=== PATIENT | female | born 1985 | race Caucasian/White ===

== ENCOUNTER 2016-12-18 16:19 | Emergency (ER) | payer SELFPAY ==
--- NOTE | 2016-12-18 16:29 | ER Document Report ---
ED Medical Screen (RME) - General Stated Complaint: URINARY PAIN Time seen by provider: 16:25 Mode of Arrival: Ambulatory Information source: Patient Notes: 31-year-old female complaining of fishy vaginal odor and burning and urinary frequency and dysuria. History of abnormal Pap smear 3 years ago and has not had a Pap smear since. No pelvic cramping but there is some dyspareunia. No history of STD. TRAVEL OUTSIDE OF THE [place] IN LAST 30 DAYS: No - Related Data Allergies/Adverse Reactions: No Known Allergies Allergy (Verified 08/31/14 00:47) Past Medical History Malignancy Medical History: Reports: Hx Cervical Cancer - dysplasia on colposcopy Psychiatric Medical History: Reports: Hx Bipolar Disorder Past Surgical History: Reports: Hx Gynecologic Surgery - cervical cancer removal , Hx Tubal Ligation - Immunizations Immunizations up to date: Yes Hx Diphtheria, Pertussis, Tetanus Vaccination: Yes - 2012 Physical Exam - Vital signs Vitals: Temp Pulse Resp BP Pulse Ox 97.9 F 92 16 126/76 H 97 12/18/16 16:23 12/18/16 16:23 12/18/16 16:23 12/18/16 16:23 12/18/16 16:23 Course - Vital Signs Vital signs: Temp Pulse Resp BP Pulse Ox 97.9 F 92 16 126/76 H 97 12/18/16 16:23 12/18/16 16:23 12/18/16 16:23 12/18/16 16:23 12/18/16 16:23
--- NOTE | 2016-12-18 17:09 | ER Document Report ---
ED GI/ - General Chief Complaint: Vaginal Discharge Stated Complaint: URINARY PAIN Mode of Arrival: Ambulatory Notes: Marlen alvarado is a 31-year-old female who presents emergency Department complaining of vaginal discharge for the past 4 weeks as well as pain during intercourse and new onset pyuria at this morning. Patient states that she is having unprotected sex with the same partner. She states that she has a history of getting urinary tract infections and bacterial vaginosis very easily. Otherwise she denies any nausea, vomiting, diarrhea or constipation. Last bowel movement was this morning which was normal. States that she had a tubal ligation and since then has had irregular menstrual periods Past medical history significant for history of cervical cancer she had a cervical cone biopsy 3 years ago and has not had any follow-up since. Patient does not have any medical insurance and is not willing to had a pocket for co-pay was so therefore she does not follow up with any providers. TRAVEL OUTSIDE OF THE [place] IN LAST 30 DAYS: No - Related Data Allergies/Adverse Reactions: No Known Allergies Allergy (Verified 08/31/14 00:47) Past Medical History - General Information source: Patient - Social History Smoking Status: Current Some Day Smoker Family History: Hypertension, Malignancy Renal/ Medical History: Denies: Hx Peritoneal Dialysis Malignancy Medical History: Reports: Hx Cervical Cancer - dysplasia on colposcopy Psychiatric Medical History: Reports: Hx Bipolar Disorder Past Surgical History: Reports: Hx Gynecologic Surgery - cervical cancer removal , Hx Tubal Ligation - Immunizations Immunizations up to date: Yes Hx Diphtheria, Pertussis, Tetanus Vaccination: Yes - 2012 Review of Systems - Review of Systems Constitutional: No symptoms reported EENT: No symptoms reported Cardiovascular: No symptoms reported Respiratory: No symptoms reported Gastrointestinal: No symptoms reported Genitourinary: No symptoms reported Female Genitourinary: See HPI Musculoskeletal: No symptoms reported Skin: No symptoms reported Hematologic/Lymphatic: No symptoms reported Neurological/Psychological: No symptoms reported Physical Exam - Vital signs Vitals: Temp Pulse Resp BP Pulse Ox 97.9 F 92 16 126/76 H 97 12/18/16 16:23 12/18/16 16:23 12/18/16 16:23 12/18/16 16:23 12/18/16 16:23 - Notes Notes: PHYSICAL EXAM GENERAL: Alert, interacts well. HEAD: Normocephalic, atraumatic. EYES: Pupils equal, round, and reactive to light. Extraocular movements intact. ENT: Oral mucosa moist, tongue midline. NECK: Full range of motion. Supple. Trachea midline. LUNGS: Clear to auscultation bilaterally, no wheezes, rales, or rhonchi. No respiratory distress. HEART: Regular rate and rhythm. No murmurs, gallops, or rubs. ABDOMEN: Soft, nondistended, nontender. No guarding, rebound, or rigidity.. Bowel sounds present in all 4 quadrants. FEMALE : Normal external exam. No evidence of lesions, lacerations, bruising or vesicles. Speculum exam normal cervix closed. there is evidence of vaginal discharge with odor. No evidence of lesions. No vaginal bleeding. Bimanual exam normal with positive cervical motion tenderness. No adnexal mass or adnexal tenderness. EXTREMITIES: Moves all 4 extremities spontaneously. No edema, radial and dorsalis pedis pulses 2/4 bilaterally. No cyanosis. NEUROLOGICAL: Alert and oriented x3. Normal speech. PSYCH: Normal affect, normal mood. SKIN: Warm, dry, normal turgor. No rashes or lesions noted. Course - Re-evaluation Re-evalutation: 12/18/16 18:58 Patient is a 31-year-old female who has recurrent history of UTIs and bacterial vaginitis. Pelvic exam and labs reveal UTI and bacterial vaginosis without any evidence of Trichomonas, Chlamydia or gonorrhea. Patient will be discharged home on by mouth Flagyl and hematocrit follow-up with primary care as needed. Will give patient information [facility]. - Vital Signs Vital signs: Temp Pulse Resp BP Pulse Ox 97.9 F 92 16 126/76 H 97 12/18/16 16:24 12/18/16 16:24 12/18/16 16:24 12/18/16 16:24 12/18/16 16:24 - Laboratory Laboratory results interpreted by me: 12/18/16 16:30 Ur Leukocyte Esterase MODERATE H Discharge - Discharge Clinical Impression: Bacterial vaginitis UTI (urinary tract infection) Qualifiers: Urinary tract infection type: acute cystitis Hematuria presence: without hematuria Qualified Code(s): N30.00 - Acute cystitis without hematuria Condition: Good Disposition: HOME, SELF-CARE Additional Instructions: VAGINITIS: Your exam shows that you have vaginitis, a vaginal infection. The infection can be caused by a many different organisms, including trichomonas or Gardnerella. The usual symptoms are vaginal irritation and discharge. The treatment is usually antibiotics such as Flagyl. Laboratory tests can determine which germ is responsible. Use the medication as prescribed. Because this infection can be transmitted sexually, your sexual partner may need to be checked and treated also. If your physician has not discussed this with you, please check before resuming sexual relations. If a culture shows gonorrhea or chlamydia, the infection must be reported to the health department. Call the doctor if you develop pelvic pain, fever, or problems with urination, or if you don't improve as expected. VAGINOSIS, BACTERIAL: Your exam shows you have bacterial vaginosis. This condition is due to an overgrowth of bacteria in the vagina. Symptoms may include vaginal itching or pain, a smelly discharge, and sometimes burning with urination. Normally this is not transmitted by sexual contact. Vaginosis can be treated with oral or topical antibiotics. Metronidazole ( Flagyl) pills are usually effective. Topical vaginal creams include Cleocin and Metro-Gel. You should avoid sexual contact until your symptoms are all better. Call the doctor if you develop pelvic pain, fever, or problems with urination, or if you don't improve as expected. ANTIBIOTIC THERAPY: You have been given an antibiotic prescription. It's important that you take all the medication, unless instructed otherwise by your physician. Failure to complete the entire course can result in relapse of your condition. Common side effects of antibiotics include nausea, intestinal cramping, or diarrhea. Women may develop vaginal yeast infections, and babies can get yeast (thrush) in the mouth following the use of antibiotics. Contact your physician if you develop significant side effects from this medication. Allergy to this antibiotic can result in hives, wheezing, faintness, or itching. If symptoms of allergy occur, stop the medication and call the doctor. METRONIDAZOLE: Metronidazole (Flagyl) has been prescribed. This medication is used to kill a type of bacteria called anaerobes, and protozoan parasites such as trichomonas and Giardia. Flagyl often causes a metallic taste in the mouth and mild nausea. Do not use alcohol in any form with Flagyl (including alcohol in medication elixirs). Flagyl interacts with alcohol to cause flushing, palpitations, headache, stomach cramps, and vomiting. Do not use Flagyl if you are taking Antabuse (disulfiram). Call the doctor at once if you develop rash, shortness of breath, itching, or lightheadedness. URINARY TRACT INFECTION: Your evaluation indicates that you have a urinary tract infection. This is due to germs growing in the bladder. This is a common problem. This infection usually responds quickly to antibiotics. Your antibiotic should be taken exactly as prescribed. Drink plenty of fluids -- three to four quarts a day. Occasionally, a bladder anesthetic will be prescribed to help stop the feeling of urgency until the antibiotic has a chance to clear the infection. This may cause your urine to be dark orange. Certain urine infections require a culture. If the doctor obtained a culture, the results will be back in two days. You should call to see if a change in treatment is needed. A repeat urinalysis after you finish treatment is often recommended. The physician will let you know if further testing is required. Call the doctor if you develop fever, chills, flank pain, inability to urinate, or blood in the urine. ANTIBIOTIC THERAPY: You have been given an antibiotic prescription. It's important that you take all the medication, unless instructed otherwise by your physician. Failure to complete the entire course can result in relapse of your condition. Common side effects of antibiotics include nausea, intestinal cramping, or diarrhea. Women may develop vaginal yeast infections, and babies can get yeast (thrush) in the mouth following the use of antibiotics. Contact your physician if you develop significant side effects from this medication. Allergy to this antibiotic can result in hives, wheezing, faintness, or itching. If symptoms of allergy occur, stop the medication and call the doctor. CIPROFLOXACIN: You have been given an antibacterial agent, ciprofloxacin (Cipro). This medicine is not related to the penicillins, sulfas, cephalosporins, or tetracyclines. It is often given to patients who are allergic to these drugs. It has been chosen for you either because other drugs are not appropriate, or because of the nature of your problem. Cipro should not be taken with antacids, as these can decrease its effectiveness. It can be taken without regard to meals. CIPRO SHOULD NOT BE TAKEN BY CHILDREN, NURSING WOMEN, OR WOMEN. Although Cipro is usually well-tolerated, common side effects can include nausea and diarrhea. Contact your doctor if you experience any unusual symptoms while on this medication, such as joint pain or swelling, shortness of breath, wheezing, faintness, or hives. FOLLOW-UP CARE: If you have been referred to a physician for follow-up care, call the physician s office for an appointment as you were instructed or within the next two days. If you experience worsening or a significant change in your symptoms, notify the physician immediately or return to the Emergency Department at any time for re-evaluation. Prescriptions: Ciprofloxacin HCl [Cipro 500 mg Tablet] 500 mg PO BID 3 Days Metronidazole [Flagyl 500 mg Tablet] 500 mg PO BID 14 Days
[2016-12-18 17:11] LABS: APPEARANCE,URINE SLIGHTLY-CLOUDY; BILIRUBIN,URINE NEGATIVE (NEGATIVE); GLUCOSE, URINE NEGATIVE (NEGATIVE); KETONES,URINE NEGATIVE (NEGATIVE); LEUKOCYTE ESTERASE,URINE MODERATE (NEGATIVE); NITRITE,URINE NEGATIVE (NEGATIVE); PROTEIN,URINE NEGATIVE (NEGATIVE); URINE SPECIFIC GRAVITY 1.023; UROBILINOGEN,URINE NEGATIVE mg/dL (<2.0)
[2016-12-18 18:29] LABS: CHLAM PCR NOT DETECTED (NOT DETECT)
[2016-12-18] MEDS ORDERED: METRONIDAZOLE 500 MG TABLET PO ONE (19:08)
[2016-12-18] MEDS ORDERED: CIPROFLOXACIN HCL 500 MG TABLET PO ONE (19:08)
[2016-12-18 19:31] VITALS: BP 126/80
== END 2016-12-18 19:32 | disposition home or self-care (01) ==
LOC: ER 16:19
DX: N30.00 Acute cystitis without hematuria (principal); N76.0 Acute vaginitis; B96.89 Other specified bacterial agents as the cause of diseases classified elsewhere; Z85.41 Personal history of malignant neoplasm of cervix uteri
CPT/HCPCS: 81001; 81025; 87086; 87088; 87186; 87210; 87491; 87591; 99283

== ENCOUNTER 2017-01-19 06:03 | Emergency (ER) | payer OTHER ==
[2017-01-19] MEDS ORDERED: NORMAL SALINE 1000 ML 1,000 ML IV ONE (07:41)
[2017-01-19] MEDS ORDERED: KETOROLAC TROMETHAMINE INJ/PF 30 MG/1 ML SDV IV ONE (07:41)
--- NOTE | 2017-01-19 07:42 | ER Document Report ---
HPI - HPI Patient complains to provider of: sore throat Onset: Yesterday Onset/Duration: Gradual Quality of pain: Achy Pain Level: 5 Context: Patient complains of sore throat symptoms that started yesterday. Patient complains of chills and body aches. Patient states she's had difficulty with oral fluids due to her throat discomfort. Patient denies any fever or cough. She can swallow fluids but is just painful to do so. Associated Symptoms: Body/muscle aches, Chills, Rhinnorhea, Sore throat. denies : Nonproductive cough, Productive cough, Fever Exacerbated by: Denies Relieved by: Denies Similar symptoms previously: Yes Recently seen / treated by doctor: No - ROS ROS below otherwise negative: Yes Systems Reviewed and Negative: Yes All other systems reviewed and negative - CONSTITUTIONAL Constitutional: REPORTS: Chills. DENIES: Fever - EENT EENT: REPORTS: Sore Throat, Congestion - CARDIOVASCULAR Cardiovascular: DENIES: Chest pain - RESPIRATORY Respiratory: DENIES: Trouble Breathing, Coughing - GASTROINTESTINAL Gastrointestinal: DENIES: Nausea - REPRODUCTIVE Reproductive: DENIES: : - MUSCULOSKELETAL Musculoskeletal: REPORTS: Extremity pain - Generalized body aches - DERM Skin Color: Normal Skin Problems: None Past Medical History - General Information source: Patient - Social History Smoking Status: Current Some Day Smoker Frequency of alcohol use: None Drug Abuse: None Occupation: retail Family History: Hypertension, Malignancy Patient has suicidal ideation: No Patient has homicidal ideation: No Renal/ Medical History: Denies: Hx Peritoneal Dialysis Malignancy Medical History: Reports: Hx Cervical Cancer - dysplasia on colposcopy Psychiatric Medical History: Reports: Hx Bipolar Disorder Past Surgical History: Reports: Hx Gynecologic Surgery - cervical cancer removal , Hx Tubal Ligation - Immunizations Immunizations up to date: Yes Hx Diphtheria, Pertussis, Tetanus Vaccination: Yes - 2013 Vertical Provider Document - CONSTITUTIONAL Agree With Documented VS: Yes Exam Limitations: No Limitations General Appearance: WD/WN, No Apparent Distress - INFECTION CONTROL TRAVEL OUTSIDE OF THE [place] IN LAST 30 DAYS: No - HEENT HEENT: Atraumatic, Normocephalic, Pharyngeal Tenderness, Pharyngeal Erythema. negative: Tympanic Membrane Red, Tympanic Membrane Bulging - NECK Neck: Lymphadenopathy-Left, Lymphadenopathy-Right - RESPIRATORY Respiratory: Breath Sounds Normal, No Respiratory Distress, Chest Non-Tender O2 Sat by Pulse Oximetry: 98 - CARDIOVASCULAR Cardiovascular: Regular Rhythm, No Murmur, Tachycardia - BACK Back: Normal Inspection. negative: CVA Tenderness-Right, CVA Tenderness-Left - MUSCULOSKELETAL/EXTREMETIES Musculoskeletal/Extremeties: HOWARD BALLESTEROS - NEURO Level of Consciousness: Awake, Alert, Appropriate Motor/Sensory: No Motor Deficit - DERM Integumentary: Warm, Dry, No Rash Course - Re-evaluation Re-evalutation: 01/19/17 Patient encouraged to increase oral fluids to stay well-hydrated. Patient's tachycardia improved as compared to her initial presentation to the ER. - Vital Signs Vital signs: Temp Pulse Resp BP Pulse Ox 98.9 F 123 H 20 131/76 H 98 01/19/17 06:20 01/19/17 06:20 01/19/17 06:20 01/19/17 06:20 01/19/17 06:20 - Laboratory Laboratory results interpreted by me: 01/19/17 09:16 Labs- Entire Visit 01/19/17 01/19/17 08:00 08:15 Monotest NEGATIVE Group A Strep Rapid POSITIVE Discharge - Discharge Clinical Impression: Sore throat, Strep pharyngitis Condition: Stable Disposition: HOME, SELF-CARE Instructions: Oral Narcotic Medication ([facility]), Strep Throat ([facility]), Penicillin V K ([facility]) Additional Instructions: Return immediately for any new or worsening symptoms Followup with your primary care provider, call tomorrow to make a followup appointment Prescriptions: Oxycodone HCl/Acetaminophen [Percocet 5-325 mg Tablet] 1 tab PO ASDIR PRN #15 tablet PRN Reason: Penicillin V Potassium [Penicillin Vk 500 mg Tablet] 500 mg PO BID #20 tablet Forms: Return to Work Referrals: [facility] [Primary Care Provider] - Follow up tomorrow
[2017-01-19] MEDS ORDERED: PENICILLIN V POTASSIUM 500 MG TABLET PO ONE (09:16)
[2017-01-19 09:55] VITALS: BP 122/68
== END 2017-01-19 09:33 | disposition home or self-care (01) ==
LOC: ER 06:03
DX: J02.0 Streptococcal pharyngitis (principal); J02.9 Acute pharyngitis, unspecified; R52 Pain, unspecified; F17.200 Nicotine dependence, unspecified, uncomplicated
CPT/HCPCS: 99283; 96361; 96374; 36415; 87880; 86308; J1885; J7030

== ENCOUNTER 2017-04-08 22:58 | Emergency (ER) | payer OTHER ==
[2017-04-09 01:21] LABS: APPEARANCE,URINE CLOUDY; BILIRUBIN,URINE NEGATIVE (NEGATIVE); GLUCOSE, URINE NEGATIVE (NEGATIVE); KETONES,URINE TRACE mg/dL (NEGATIVE); LEUKOCYTE ESTERASE,URINE LARGE (NEGATIVE); NITRITE,URINE NEGATIVE (NEGATIVE); PROTEIN,URINE 30 mg/dL (NEGATIVE); URINE SPECIFIC GRAVITY 1.029; UROBILINOGEN,URINE NEGATIVE mg/dL (<2.0)
[2017-04-09] MEDS ORDERED: CEFTRIAXONE INJ 250 MG VIAL IM ONE (01:34)
[2017-04-09] MEDS ORDERED: AZITHROMYCIN 1 GM SUSP PACKET PO ONE (01:34)
[2017-04-09] MEDS ORDERED: LIDOCAINE 1% INJ-PF (10 MG/ML) 30 ML SDV INJ ONE (01:34)
--- NOTE | 2017-04-09 01:36 | ER Document Report ---
ED GI/ - General Chief Complaint: Vaginal Discharge Stated Complaint: VAGINAL DISCHARGE Time Seen by Provider: 04/09/17 00:08 Notes: 32-year-old female presents emergency department complaining whitish/yellow vaginal discharge with close for the past 4 days. Patient states she recently broken up and gotten back together with her boyfriend last week. She states she has had sexual intercourse and from vaginal itching and discharge starting on Tuesday. Patient is concerned that she has an STD History significant for recurrent bacterial vaginosis, urinary tract infection, yeast infections. Patient has a history of a tubal ligation TRAVEL OUTSIDE OF THE [place] IN LAST 30 DAYS: No - Related Data Allergies/Adverse Reactions: No Known Allergies Allergy (Verified 08/31/14 00:47) Past Medical History - Social History Smoking Status: Current Every Day Smoker Chew tobacco use (# tins/day): No Frequency of alcohol use: None Drug Abuse: None Family History: Hypertension, Malignancy Patient has suicidal ideation: No Patient has homicidal ideation: No Renal/ Medical History: Denies: Hx Peritoneal Dialysis Malignancy Medical History: Reports: Hx Cervical Cancer - dysplasia on colposcopy Psychiatric Medical History: Reports: Hx Bipolar Disorder Past Surgical History: Reports: Hx Gynecologic Surgery - cervical cancer removal , Hx Tubal Ligation - Immunizations Immunizations up to date: Yes Hx Diphtheria, Pertussis, Tetanus Vaccination: Yes - 2012 Review of Systems - Review of Systems Genitourinary: Burning, Dysuria, Discharge, Frequency, Urgency. denies: Flank pain Female Genitourinary: See HPI Physical Exam - Vital signs Vitals: Temp Pulse Resp BP Pulse Ox 98.2 F 87 16 131/62 H 98 04/08/17 23:48 04/08/17 23:48 04/08/17 23:48 04/08/17 23:48 04/08/17 23:48 - Notes Notes: PHYSICAL EXAM GENERAL: Alert, interacts well. LUNGS: Clear to auscultation bilaterally, no wheezes, rales, or rhonchi. No respiratory distress. HEART: Regular rate and rhythm. No murmurs, gallops, or rubs. ABDOMEN: Soft, nondistended, nontender. No guarding, rebound, or rigidity.. Bowel sounds present in all 4 quadrants. FEMALE : Normal external exam. No evidence of lesions, lacerations, bruising or vesicles. Speculum exam normal cervix closed. evidence of vaginal discharge with odor. No evidence of lesions. No vaginal bleeding. Bimanual exam normal no cervical motion tenderness. No adnexal mass or adnexal tenderness. EXTREMITIES: Moves all 4 extremities spontaneously. No edema, radial and dorsalis pedis pulses 2/4 bilaterally. No cyanosis. NEUROLOGICAL: Alert and oriented x4. Normal speech. PSYCH: Normal affect, normal mood. SKIN: Warm, dry, normal turgor. No rashes or lesions noted. Course - Re-evaluation Re-evalutation: 04/09/17 06:43 Patient is a 32-year-old female who is hemodynamic stable, no acute distress afebrile. Patient requesting treatment for complaining gonorrhea since she is sure that her patient positive for it. She is discharged prior to return of her results which did come back negative. Given the patient does have recurrent yeast infections it is possible that she had one but had treated at home when she used Monistat the other day. Patient does have evidence of urinary tract infection on urinalysis. Patient sent home on p.o. Cipro instruction to follow-up with primary care - Vital Signs Vital signs: Temp Pulse Resp BP Pulse Ox 98.2 F 93 20 120/76 98 04/08/17 23:48 04/09/17 02:55 04/09/17 02:55 04/09/17 02:55 04/09/17 02:55 - Laboratory Laboratory results interpreted by me: 04/09/17 00:30 Urine Protein 30 H Urine Ketones TRACE H Ur Leukocyte Esterase LARGE H Discharge - Discharge Clinical Impression: UTI (urinary tract infection), Vaginal discharge Condition: Good Disposition: HOME, SELF-CARE Instructions: Urinary Tract Infection ([facility]) Prescriptions: Ciprofloxacin HCl [Cipro 250 mg Tablet] 1 tab PO BID #6 tab Forms: Elevated Blood Pressure Referrals: AMERICO ZAMAN MD [NO LOCAL MD] - Follow up as needed
[2017-04-09 02:30] LABS: CHLAM PCR NOT DETECTED (NOT DETECT)
[2017-04-09 02:56] VITALS: BP 120/76
== END 2017-04-09 02:55 | disposition home or self-care (01) ==
LOC: ER 22:58
DX: N39.0 Urinary tract infection, site not specified (principal); N89.8 Other specified noninflammatory disorders of vagina; F17.200 Nicotine dependence, unspecified, uncomplicated
CPT/HCPCS: 99283; 96372; 87210; 81025; 81001; 87491; 87591; J3490; Q0144; J0696

== ENCOUNTER 2017-08-10 10:05 | Emergency (ER) | payer OTHER ==
--- NOTE | 2017-08-10 11:05 | ER Document Report ---
ED Oral Problem - General Chief Complaint: Toothache Stated Complaint: TOOTHACHE Time Seen by Provider: 08/10/17 10:53 Notes: 32 yo female c/o pain to left upper and lower jaw for several weeks from wisdom teeth. pt has had no fever. no swelling. "feels like her teeth are moving". TRAVEL OUTSIDE OF THE [place] IN LAST 30 DAYS: No - HPI Patient complains to provider of: Toothache Onset: Last week Onset: Gradual Quality of pain: Achy Context: denies: Fractured tooth, Recent antibiotic use, Recent dental extractions Associated symptoms: Earache, Headache, Toothache Relieved by: Nothing - no relief with Tylenol, Motrin, BC Similar symptoms previously: Yes Recently seen / treated by doctor/dentist: No - Related Data Allergies/Adverse Reactions: No Known Allergies Allergy (Verified 08/10/17 10:10) Past Medical History - General Information source: Patient - Social History Smoking Status: Current Some Day Smoker Chew tobacco use (# tins/day): No Frequency of alcohol use: None Drug Abuse: None Family History: Hypertension, Malignancy Renal/ Medical History: Denies: Hx Peritoneal Dialysis Malignancy Medical History: Reports: Hx Cervical Cancer - dysplasia on colposcopy Psychiatric Medical History: Reports: Hx Bipolar Disorder Past Surgical History: Reports: Hx Gynecologic Surgery - cervical cancer removal , Hx Tubal Ligation - Immunizations Immunizations up to date: Yes Hx Diphtheria, Pertussis, Tetanus Vaccination: Yes - 2012 Review of Systems - Review of Systems Constitutional: No symptoms reported EENT: See HPI Cardiovascular: No symptoms reported Respiratory: No symptoms reported Gastrointestinal: No symptoms reported Genitourinary: No symptoms reported Female Genitourinary: No symptoms reported Musculoskeletal: No symptoms reported Skin: No symptoms reported Hematologic/Lymphatic: No symptoms reported Neurological/Psychological: No symptoms reported Physical Exam - Vital signs Vitals: Temp Pulse Resp BP Pulse Ox 98.2 F 81 16 137/94 H 99 08/10/17 10:10 08/10/17 10:10 08/10/17 10:10 08/10/17 10:10 08/10/17 10:10 Interpretation: Normal - General General appearance: Appears well, Alert - HEENT Head: Normocephalic, Atraumatic Eyes: Normal Conjunctiva: Normal Pupils: PERRL Tympanic membrane: Normal Mouth/Lips: No: Caries, Dental fracture, Laceration, Lesions Mucous membranes: Moist Teeth diagram: 1 - pain 2 - pain Pharynx: Normal Neck: Normal, Supple - Respiratory Respiratory status: No respiratory distress Chest status: Nontender Breath sounds: Normal Chest palpation: Normal - Cardiovascular Rhythm: Regular Heart sounds: Normal auscultation Murmur: No - Abdominal Inspection: Normal Distension: No distension Bowel sounds: Normal Tenderness: Nontender Organomegaly: No organomegaly - Back Back: Normal, Nontender - Extremities General upper extremity: Normal inspection, Nontender, Normal color, Normal ROM , Normal temperature General lower extremity: Normal inspection, Nontender, Normal color, Normal ROM , Normal temperature, Normal weight bearing. No: Chris's sign - Neurological Neuro grossly intact: Yes Cognition: Normal Orientation: AAOx4 [place] Coma Scale Eye Opening: Spontaneous [place] Coma Scale Verbal: Oriented [place] Coma Scale Motor: Obeys Commands [place] Coma Scale Total: 15 Speech: Normal Motor strength normal: LUE, RUE, LLE, RLE Sensory: Normal - Psychological Associated symptoms: Normal affect, Normal mood - Skin Skin Temperature: Warm Skin Moisture: Dry Skin Color: Normal Course - Re-evaluation Re-evalutation: 08/10/17 11:04 no signs of infection or abscess, no s/s bebe's or peritonsillar abscess. pt requesting stronger medication because Motrin has not been working. will write short Rx for Ultram. pt is stable for discharge 08/10/17 11:07 pt is also requesting a serum test today. she reports she took 2 home tests one came back positive, one came back negative. pt denies any vaginal bleeding, abdominal pain or any other related concerns today, "just want to know if Im ". Pt has had her tube tied, . request declined today. test is not clincally indicated for today's visit. - Vital Signs Vital signs: Temp Pulse Resp BP Pulse Ox 98.2 F 81 16 137/94 H 99 08/10/17 10:10 08/10/17 10:10 08/10/17 10:10 08/10/17 10:10 08/10/17 10:10 Discharge - Discharge Clinical Impression: Pain, dental Condition: Stable Disposition: HOME, SELF-CARE Instructions: Toothache ([facility]), Ultram ([facility]), Ibuprofen (General) ([facility]) Additional Instructions: Please take medications as prescribed Follow up with Dental for further evaluation and treatment Prescriptions: Ibuprofen [Motrin 800 Mg Tablet] 800 mg PO Q6H #20 tablet Tramadol HCl [Ultram] 50 mg PO Q6H PRN #20 tablet PRN Reason:
[2017-08-10 11:37] VITALS: BP 135/84
== END 2017-08-10 11:35 | disposition home or self-care (01) ==
LOC: ER 10:05
DX: K08.89 Other specified disorders of teeth and supporting structures (principal); F17.200 Nicotine dependence, unspecified, uncomplicated; Z98.51 Tubal ligation status
CPT/HCPCS: 99282

== ENCOUNTER 2017-12-12 09:31 | Emergency (ER) | payer OTHER ==
--- NOTE | 2017-12-12 10:29 | ER Document Report ---
HPI - HPI Patient complains to provider of: vaginal discharge Onset: Other - 1 week Pain Level: 1 Context: 32 yo female with malodorous yellow/green vaginal discharge rof 1 week with dyspareunia. Concerned about STD. No fever. Associated Symptoms: None Exacerbated by: Denies Relieved by: Denies Similar symptoms previously: No Recently seen / treated by doctor: No - ROS ROS below otherwise negative: Yes Systems Reviewed and Negative: Yes All other systems reviewed and negative - REPRODUCTIVE LMP: 11/18/17 Reproductive: REPORTS: Abnormal bleeding / discharge. DENIES: : Past Medical History - General Information source: Patient - Social History Smoking Status: Never Smoker Frequency of alcohol use: None Drug Abuse: None Family History: Hypertension, Malignancy Patient has suicidal ideation: No Patient has homicidal ideation: No - Medical History Notes: ghonorrhea years ago, Trich, abnl pap-culpscopy Renal/ Medical History: Denies: Hx Peritoneal Dialysis Malignancy Medical History: Reports: Hx Cervical Cancer - dysplasia on colposcopy Psychiatric Medical History: Reports: Hx Bipolar Disorder Past Surgical History: Reports: Hx Gynecologic Surgery - cervical cancer removal , Hx Tubal Ligation - Immunizations Immunizations up to date: Yes Hx Diphtheria, Pertussis, Tetanus Vaccination: Yes - 2012 Vertical Provider Document - CONSTITUTIONAL Agree With Documented VS: Yes Exam Limitations: No Limitations General Appearance: No Apparent Distress - INFECTION CONTROL TRAVEL OUTSIDE OF THE [place] IN LAST 30 DAYS: No - HEENT HEENT: Normocephalic - NECK Neck: Supple - RESPIRATORY Respiratory: Breath Sounds Normal, No Respiratory Distress O2 Sat by Pulse Oximetry: 100 - CARDIOVASCULAR Cardiovascular: Regular Rate, Regular Rhythm - GI/ABDOMEN Gastrointestinal: Abdomen Soft, Abdomen Non-Tender, No Organomegaly - REPRODUCTIVE Female Genitalia: CMT - mild Notes: scant malodrous discharge in vault. pt had been douching after sex and I told her to stop. - MUSCULOSKELETAL/EXTREMETIES Musculoskeletal/Extremeties: HOWARD BALLESTEROS - NEURO Level of Consciousness: Awake, Alert - DERM Integumentary: Warm, Dry, No Rash Course - Re-evaluation Re-evalutation: 12/12/17 wet prep with trichomonas, discussed with pt, will tx for buddy/chalm pending results. 12/12/17 22:51 [p-gc/chlam negative, pt did not call me back - Vital Signs Vital signs: Temp Pulse Resp BP Pulse Ox 98.6 F 72 20 126/83 H 100 12/12/17 09:53 12/12/17 09:53 12/12/17 09:53 12/12/17 09:53 12/12/17 09:53 Discharge - Discharge Clinical Impression: Vaginal discharge, Pelvic pain, Trichomonas Condition: Good Disposition: HOME, SELF-CARE Instructions: Acetaminophen, Azithromycin ([facility]), Metronidazole ([facility]), Pelvic Pain ([facility]), Rocephin ([facility]), Trichomonas Infection ([facility]) Additional Instructions: Call me in 3 hours for the gonorrhea and Chlamydia test at [phone] Return to the emergency room for increased pain No alcohol when you take the Flagyl sex partner needs treatment for trichomonas Prescriptions: Metronidazole [Flagyl 500 mg Tablet] 2,000 mg PO ONCE #4 tablet Forms: Return to Work Referrals: LOUIS SALMERON MD [EMERITUS] - Follow up as needed
[2017-12-12 10:41] LABS: APPEARANCE,URINE SLIGHTLY-CLOUDY; BILIRUBIN,URINE NEGATIVE (NEGATIVE); COLOR,URINE YELLOW; GLUCOSE, URINE NEGATIVE (NEGATIVE); KETONES,URINE NEGATIVE (NEGATIVE); LEUKOCYTE ESTERASE,URINE MODERATE (NEGATIVE); NITRITE,URINE NEGATIVE (NEGATIVE); PROTEIN,URINE NEGATIVE (NEGATIVE); URINE SPECIFIC GRAVITY 1.023; UROBILINOGEN,URINE NEGATIVE mg/dL (<2.0)
[2017-12-12] MEDS ORDERED: AZITHROMYCIN 250 MG TABLET PO ONE (10:57)
[2017-12-12] MEDS ORDERED: ONDANSETRON 4 MG TAB.RAPDIS PO ONE (10:57)
[2017-12-12] MEDS ORDERED: CEFTRIAXONE INJ 250 MG VIAL IM ONE (10:57)
[2017-12-12] MEDS ORDERED: LIDOCAINE 1% INJ-PF (10 MG/ML) 30 ML SDV ONE (11:10)
[2017-12-12 11:18] LABS: BACTERIA (WET MOUNT) 3+ BACTERIA SEEN; EPITHELIALS (WET MOUNT) 3+ EPITHELIALS SEEN; T.VAGINALIS (WET MOUNT) TRICHOMONAS SEEN; WBCS (WET MOUNT) 1+ WBCS SEEN; YEAST (WET MOUNT) NO YEAST SEEN
[2017-12-12 11:49] VITALS: BP 125/75
[2017-12-12 12:39] LABS: CHLAM PCR NOT DETECTED (NOT DETECT); GON PCR NOT DETECTED (NOT DETECT)
== END 2017-12-12 11:49 | disposition home or self-care (01) ==
LOC: ER 09:31
DX: A59.9 Trichomoniasis, unspecified (principal); N89.8 Other specified noninflammatory disorders of vagina; R10.2 Pelvic and perineal pain; N94.10 Unspecified dyspareunia
CPT/HCPCS: 99283; 96372; 87086; 87210; 81025; 81001; 87491; 87591; S0119; J0696

== ENCOUNTER 2017-12-14 19:39 | Emergency (ER) | payer SELFPAY ==
[2017-12-14 19:55] VITALS: BP 138/80
[2017-12-14] MEDS ORDERED: ACETAMINOPHEN 325 MG TABLET PO ONE (21:00)
--- NOTE | 2017-12-14 21:06 | ER Document Report ---
HPI - HPI Pain Level: 5 Notes: Patient is a 32-year-old female no significant past medical history who presents the ED complaining of nasal congestion/discharge, fever, body ache, dry nonproductive cough, nausea, vomiting 2, loose stool 2 days. Patient states that on occasion she will have some soreness when she coughs to her upper abdomen, but nothing at rest or with ambulation. Patient states that she is still eating and drinking without any difficulties. She is urinating normally otherwise. Patient states that she has not had any melena, hematemesis , hematochezia. Patient states that she has had about 4 loose stools today and 6 yesterday. Patient has not vomited in the last 7 or 8 hours. Patient has not been taking any Tylenol or Motrin for her symptoms. She has not been taking any other [id number]-lvauajw meds for her symptoms. Patient states that she has been exposed to people with a similar illness. She denies any drug allergies. Denies any smoking or IV drug use. Denies any headache, neck pain, sore throat, chest pain, palpitations, syncope, shortness of breath, wheeze, dyspnea, abdominal pain, urinary retention, dysuria, hematuria, loss of control of bowel or bladder, numbness/tingling, saddle anesthesia, muscle paralysis/ weakness, or rash. - ROS Systems Reviewed and Negative: Yes All other systems reviewed and negative - EENT EENT: REPORTS: Sore Throat - NEURO Neurology: REPORTS: Headache, Weakness - CARDIOVASCULAR Cardiovascular: REPORTS: Chest pain - RESPIRATORY Respiratory: REPORTS: Coughing - REPRODUCTIVE Reproductive: DENIES: : Past Medical History - Social History Smoking Status: Never Smoker Chew tobacco use (# tins/day): No Frequency of alcohol use: None Drug Abuse: None Family History: Hypertension, Malignancy Patient has suicidal ideation: No Patient has homicidal ideation: No Renal/ Medical History: Denies: Hx Peritoneal Dialysis Malignancy Medical History: Reports: Hx Cervical Cancer - dysplasia on colposcopy Psychiatric Medical History: Reports: Hx Bipolar Disorder Past Surgical History: Reports: Hx Gynecologic Surgery - cervical cancer removal , Hx Tubal Ligation - Immunizations Immunizations up to date: Yes Hx Diphtheria, Pertussis, Tetanus Vaccination: Yes - 2013 Vertical Provider Document - CONSTITUTIONAL Agree With Documented VS: Yes Notes: PHYSICAL EXAMINATION: GENERAL: Well-appearing, well-nourished and in no acute distress. A&Ox4. Answers questions appropriately. Moves comfortably w/o notable distress HEAD: Atraumatic, normocephalic. EYES: Pupils equal round and reactive to light, extraocular movements intact, sclera anicteric, conjunctiva are normal. ENT: EAC clear b/l. TM's intact b/l without erythema, fluid, or perforation. Nares patent and with clear discharge. oropharynx no erythema without exudates. 2+ tonsilar hypertrophy without erythema or exudate. No palatine shift. Uvula midline. No tongue protrusion. No drooling, hoarseness, or airway compromise. Moist mucous membranes. No sinus tenderness. NECK: Normal range of motion, supple without lymphadenopathy. No rigidity/ meningismus. LUNGS: Breath sounds clear to auscultation bilaterally and equal. No wheezes rales or rhonchi. No retractions HEART: Regular rate and rhythm without murmurs, rubs, gallops. ABDOMEN: Soft, nontender, nondistended abdomen. No guarding, no rebound. No masses appreciated. Normal bowel sounds present. No CVA tenderness bilaterally. No hepatosplenomegaly. NEUROLOGICAL: Normal speech, normal gait. Normal sensory, motor exams PSYCH: Normal mood, normal affect. SKIN: Warm, Dry, normal turgor, no rashes or lesions noted. - INFECTION CONTROL TRAVEL OUTSIDE OF THE [place] IN LAST 30 DAYS: No - RESPIRATORY O2 Sat by Pulse Oximetry: 99 Course - Re-evaluation Re-evalutation: 12/14/17 22:20 Patient is a well-hydrated 32-year-old female who presents the ED with a fever and URI, suspect influenza. Vitals are stable (temp dec to 99.5 s/p tylenol). PE is otherwise unremarkable. Patient was given Tylenol p.o. today. Patient is tolerating p.o. without any difficulties. She has not had any n/v/d during her stay. No other labs or imaging warranted at this time based on H&P. Patient has no significant cardiopulmonary medical history nor any immunocompromised condition. Low suspicion for any meningitis, sepsis, peritonsillar/pharyngeal abscess, respiratory compromise, acute abdomen, ACS, PE , Pneumothorax, Pericarditis, Dissection, or other emergent systemic condition at this time. Patient is aware this condition can change from initial presentation and she needs to monitor symptoms closely. Conservative measures otherwise for symptoms. Recheck with your PCM in 2-3 days. Return to the ED with any worsening/concerning symptoms otherwise as reviewed in discharge. Patient is in agreement. - Vital Signs Vital signs: Temp Pulse Resp BP Pulse Ox 101.0 F H 107 H 28 H 138/80 H 99 12/14/17 19:52 12/14/17 19:52 12/14/17 19:52 12/14/17 19:52 12/14/17 19:52 Discharge - Discharge Clinical Impression: Acute URI, Nausea vomiting and diarrhea Fever Qualifiers: Fever type: unspecified Qualified Code(s): R50.9 - Fever, unspecified Condition: Stable Disposition: HOME, SELF-CARE Instructions: Antinausea Medication ([facility]), Diarrhea, Nonspecific ([facility]), Influenza ([facility]), Upper Respiratory Illness ([facility]), Vomiting ([facility]) Additional Instructions: Maintain adequate fluid and food intake [place] diet ([employer] Bananas, rice, apples, toast, etc Zofran as needed tylenol/motrin for fever cold medications as needed Monitor for any worsening symptoms Make sure you are staying hydrated enough to urinate and have normal BM's Recheck with your PCM in 2-3 days Consider consult with Gastroenterology for ongoing/worsening symptoms Return to the ED with any worsening symptoms and/or development of fever, headache, chest pain, palpitations, syncope, shortness of breath, trouble breathing, abdominal pain, n/v/d, blood in stool/urine, weakness, or other worsening symptoms that are concerning to you. Prescriptions: Ibuprofen 3 - 4 tab PO TID PRN #30 tablet PRN Reason: Ondansetron [Zofran Odt 4 mg Tablet] 1 - 2 tab PO Q4H PRN #15 tab.rapdis PRN Reason: For Nausea/Vomiting Forms: Elevated Blood Pressure Referrals: [facility] [Provider Group] - Follow up as needed [facility] [Provider Group] - Follow up as needed LOPEZ VELOZ MD [ACTIVE STAFF] - Follow up as needed
== END 2017-12-15 00:51 | disposition home or self-care (01) ==
LOC: ER 19:39
DX: J06.9 Acute upper respiratory infection, unspecified (principal); R11.2 Nausea with vomiting, unspecified; R19.7 Diarrhea, unspecified; R09.81 Nasal congestion; R09.89 Other specified symptoms and signs involving the circulatory and respiratory systems; R50.9 Fever, unspecified; M79.1 Myalgia; R05 Cough
CPT/HCPCS: 99283

== ENCOUNTER 2018-05-02 20:01 | Emergency (ER) | payer SELFPAY ==
--- NOTE | 2018-05-02 21:16 | ER Document Report ---
ED General - General Chief Complaint: Urinary Problem Stated Complaint: URINATION PAIN Time Seen by Provider: 05/02/18 21:08 Mode of Arrival: Ambulatory Information source: Patient Notes: 33-year-old female presents emergency department with complaints of dysuria, increased urgency, increased frequency, suprapubic pain for the last few days. Patient states that this feels similar to her previous urinary tract infections. Patient's been using ewgg-ysn-bfrruze Azo without much relief. Patient states that now she feels the pain going into her kidneys. She denies any fever, chills, nausea, vomiting, diarrhea, constipation. TRAVEL OUTSIDE OF THE [place] IN LAST 30 DAYS: No - HPI Onset: Last week Onset/Duration: Gradual Quality of pain: Burning Severity: Mild Associated symptoms: None Exacerbated by: Denies Relieved by: Denies Similar symptoms previously: Yes Recently seen / treated by doctor: No - Related Data Allergies/Adverse Reactions: No Known Allergies Allergy (Verified 05/02/18 20:02) Past Medical History - General Information source: Patient - Social History Smoking Status: Never Smoker Family History: Hypertension, Malignancy Renal/ Medical History: Denies: Hx Peritoneal Dialysis Malignancy Medical History: Reports: Hx Cervical Cancer - dysplasia on colposcopy Psychiatric Medical History: Reports: Hx Bipolar Disorder Past Surgical History: Reports: Hx Gynecologic Surgery - cervical cancer removal , Hx Tubal Ligation - Immunizations Immunizations up to date: Yes Hx Diphtheria, Pertussis, Tetanus Vaccination: Yes - 2012 Review of Systems - Review of Systems Constitutional: No symptoms reported EENT: No symptoms reported Cardiovascular: No symptoms reported Respiratory: No symptoms reported Gastrointestinal: No symptoms reported Genitourinary: Burning, Dysuria, Frequency, Urgency Musculoskeletal: No symptoms reported Skin: No symptoms reported Hematologic/Lymphatic: No symptoms reported Neurological/Psychological: No symptoms reported -: Yes All other systems reviewed and negative Physical Exam - Vital signs Vitals: Temp Pulse Resp BP Pulse Ox 98.5 F 85 16 127/76 H 97 05/02/18 20:04 05/02/18 20:04 05/02/18 20:04 05/02/18 20:04 05/02/18 20:04 Interpretation: Normal - Notes Notes: PHYSICAL EXAMINATION: GENERAL: Well-appearing, well-nourished and in no acute distress. HEAD: Atraumatic, normocephalic. EYES: Pupils equal round and reactive to light, extraocular movements intact, conjunctiva are normal. ENT: Nares patent, oropharynx clear without exudates. Moist mucous membranes. NECK: Normal range of motion, supple without lymphadenopathy LUNGS: Breath sounds clear to auscultation bilaterally and equal. No wheezes rales or rhonchi. HEART: Regular rate and rhythm without murmurs ABDOMEN: Soft, nontender, nondistended abdomen. No guarding, no rebound. No masses appreciated. Female : deferred Musculoskeletal: Normal range of motion, no pitting or edema. No cyanosis. NEUROLOGICAL: Cranial nerves grossly intact. Normal speech, normal gait. Normal sensory, motor exams PSYCH: Normal mood, normal affect. SKIN: Warm, Dry, normal turgor, no rashes or lesions noted. Course - Re-evaluation Re-evalutation: 05/02/18 22:13 Urinalysis shows signs of a urinary tract infection. Patient given a gram of Rocephin in the emergency department. I will discharge her home with an antibiotic. Patient instructed to take the medication as directed, to follow- up with her primary care physician this week, and to return to the emergency department for any worsening symptoms. Patient is agreeable to plan of care. - Vital Signs Vital signs: Temp Pulse Resp BP Pulse Ox 98.5 F 85 16 127/76 H 97 05/02/18 20:04 05/02/18 20:04 05/02/18 20:04 05/02/18 20:04 05/02/18 20:04 - Laboratory Laboratory results interpreted by me: 05/02/18 21:46 Ur Leukocyte Esterase TRACE H Discharge - Discharge Clinical Impression: Urinary tract infection Qualifiers: Urinary tract infection type: acute cystitis Hematuria presence: without hematuria Qualified Code(s): N30.00 - Acute cystitis without hematuria Condition: Good Disposition: HOME, SELF-CARE Instructions: Urinary Tract Infection ([facility]) Prescriptions: Levofloxacin 750 mg PO DAILY 5 Days #5 tablet
[2018-05-02 22:05] LABS: APPEARANCE,URINE SLIGHTLY-CLOUDY; BILIRUBIN,URINE NEGATIVE (NEGATIVE); COLOR,URINE YELLOW; GLUCOSE, URINE NEGATIVE (NEGATIVE); KETONES,URINE NEGATIVE (NEGATIVE); LEUKOCYTE ESTERASE,URINE TRACE (NEGATIVE); NITRITE,URINE NEGATIVE (NEGATIVE); PROTEIN,URINE NEGATIVE (NEGATIVE); URINE SPECIFIC GRAVITY 1.023; UROBILINOGEN,URINE NEGATIVE mg/dL (<2.0)
[2018-05-02] MEDS ORDERED: CEFTRIAXONE INJ 1000 MG VIAL IM ONE (22:13)
[2018-05-03 00:03] VITALS: BP 121/81
== END 2018-05-02 23:30 | disposition home or self-care (01) ==
LOC: ER 20:01
DX: N30.00 Acute cystitis without hematuria (principal); R10.2 Pelvic and perineal pain; Z98.51 Tubal ligation status
CPT/HCPCS: 99283; 96372; 81025; 81001; J0696

== ENCOUNTER 2019-09-30 07:43 | Emergency (ER) | payer SELFPAY ==
--- NOTE | 2019-09-30 08:45 | ER Document Report ---
ED ENT - General Chief Complaint: Ear Pain Stated Complaint: SORE THROAT, NECK PAIN Time Seen by Provider: 09/30/19 08:45 Primary Care Provider: [facility] [Provider Group] - Follow up in 1 week TRAVEL OUTSIDE OF THE [place] IN LAST 30 DAYS: No - HPI Notes: 34-year-old female to the emergency department with complaints of bilateral facial swelling and throat pain that began this morning. She states that she awoke and noticed that her face was swollen. She denies any new toiletries products, lotion, soap, detergent or any other allergic contacts. She has not changed her diet. She states that her throat hurts primarily when she is touching her neck. She denies any fevers or chills. She denies any drooling. She denies any sick contacts. She does not take any medications on a regular basis. She has no known allergies. - Related Data Allergies/Adverse Reactions: No Known Allergies Allergy (Verified 09/30/19 08:01) Past Medical History - General Information source: Patient - Social History Smoking Status: Never Smoker Frequency of alcohol use: None Drug Abuse: None Lives with: Family Family History: Reviewed & Not Pertinent, Hypertension, Malignancy Patient has suicidal ideation: No Patient has homicidal ideation: No Renal/ Medical History: Denies: Hx Peritoneal Dialysis Malignancy Medical History: Reports: Hx Cervical Cancer - dysplasia on colposcopy Psychiatric Medical History: Reports: Hx Bipolar Disorder Past Surgical History: Reports: Hx Gynecologic Surgery - cervical cancer removal, Hx Tubal Ligation - Immunizations Immunizations up to date: Yes Hx Diphtheria, Pertussis, Tetanus Vaccination: Yes - 2012 Review of Systems - Review of Systems Constitutional: denies: Chills, Fever EENT: See HPI, Throat pain, Other - Facial swelling. denies: Difficulty swallowing, Throat swelling Cardiovascular: denies: Chest pain, Palpitations, Dizziness, Lightheaded Respiratory: denies: Cough, Short of breath Gastrointestinal: denies: Abdominal pain, Diarrhea, Nausea, Vomiting Genitourinary: denies: Flank pain, Hematuria, Incontinence Musculoskeletal: No symptoms reported Skin: No symptoms reported. denies: Rash Neurological/Psychological: No symptoms reported -: Yes All other systems reviewed and negative Physical Exam - Vital signs Vitals: Temp Pulse Resp BP Pulse Ox 98.0 F 72 18 123/74 98 09/30/19 07:47 09/30/19 07:47 09/30/19 07:47 09/30/19 07:47 09/30/19 07:47 Interpretation: Normal - General General appearance: Appears well, Alert In distress: None - HEENT Head: Other - There is noted bilateral facial edema along the jawline with noted tender anterior cervical lymphadenopathy. Eyes: Normal Conjunctiva: Normal Pupils: PERRL Ears: Normal External canal: Normal Tympanic membrane: Normal. No: Bulging, Hemotympanum, Perforation Sinus: Normal Nasal: Normal Mouth/Lips: No: Angioedema, Caries, Dental fracture, Laceration Pharynx: Erythema - Mild erythema of the posterior oropharynx. There is no e xudate. There is no evidence of peritonsillar abscess. There is no tonsillar hypertrophy or uvular edema. There is no drooling or trismus. no evidence of Tyrese's angina Neck: Lymphadenopathy - Positive anterior cervical lymphadenopathy, Supple. No: Meningismus - Respiratory Respiratory status: No respiratory distress Chest status: Nontender Breath sounds: Normal. No: Rales, Rhonchi, Wheezing Chest palpation: Normal - Cardiovascular Rhythm: Regular Heart sounds: Normal auscultation Murmur: No - Abdominal Inspection: Normal Distension: No distension Bowel sounds: Normal Tenderness: Nontender Organomegaly: No organomegaly - Back Back: Normal, Nontender. No: CVA tenderness, Vertebra tenderness - Neurological Neuro grossly intact: Yes Cognition: Normal Orientation: AAOx4 León Coma Scale Eye Opening: Spontaneous León Coma Scale Verbal: Oriented León Coma Scale Motor: Obeys Commands León Coma Scale Total: 15 Speech: Normal Cranial nerves: Normal. No: Facial palsy, Forehead sparing, Gaze palsy, Sensory deficit, Tongue deviation Cerebellar coordination: Normal Motor strength normal: LUE, RUE, LLE, RLE Additional motor exam normals: Equal r developer. No: Pronator drift Sensory: Normal - Psychological Associated symptoms: Normal affect, Normal mood - Skin Skin Temperature: Warm Skin Moisture: Dry Skin Color: Normal Course - Re-evaluation Re-evalutation: 09/30/19 Impression: Facial swelling. Reassuring labs and CT. Do not think this infectious in nature and could possibly be allergic. Will send home with steroids, benadryl and pepcid. Encouraged to return if worse. Push fluids. - Vital Signs Vital signs: Temp Pulse Resp BP Pulse Ox 98.8 F 76 16 123/72 99 09/30/19 12:04 09/30/19 12:04 09/30/19 12:04 09/30/19 12:04 09/30/19 12:04 - Laboratory Result Diagrams: 09/30/19 09:30 09/30/19 09:30 Laboratory results interpreted by me: 09/30/19 09:30 Chloride 110 H - Diagnostic Test Radiology reviewed: Image reviewed, Reports reviewed Discharge - Discharge Clinical Impression: Facial swelling, Lymphadenopathy, anterior cervical Condition: Stable Disposition: HOME, SELF-CARE Instructions: Acute Allergic Reaction ([facility]) Additional Instructions: FOLLOW UP [facility] WITHOUT FAIL IN THE NEXT WEEK. RETURN IF WORSENING SWELLING, SHORTNESS OF BREATH, TONGUE SWELLING. TAKE MEDICINES PRESCRIBED. Prescriptions: Diphenhydramine HCl [Benadryl] 25 mg PO Q6H #20 capsule Famotidine [Pepcid 20 mg Tablet] 20 mg PO DAILY #12 tablet Prednisone 50 mg PO DAILY #5 tablet Referrals: [facility] [Provider Group] - Follow up in 1 week
[2019-09-30] MEDS ORDERED: DEXAMETHASONE SOD PHOS INJ 10 MG/1 ML VIAL IV ONE (09:08)
[2019-09-30] MEDS ORDERED: KETOROLAC TROMETHAMINE INJ/PF 30 MG/1 ML SDV IV ONE (09:08)
[2019-09-30 10:01] LABS: ABSOLUTE BASOPHILS # (AUTO) 0.1 10^3/uL (0.0-0.2); ABSOLUTE EOSINOPHILS # (AUTO) 0.2 10^3/uL (0.0-0.6); ABSOLUTE LYMPHOCYTES (AUTO) 1.9 10^3/uL (0.5-4.7); ABSOLUTE MONOCYTES (AUTO) 0.6 10^3/uL (0.1-1.4); ABSOLUTE NEUT (AUTO) 4.9 10^3/uL (1.7-8.2); BASOPHILS % (AUTO) 0.8 % (0-2); EOSINOPHILS % (AUTO) 2.8 % (0-6); HEMOGLOBIN 13.7 g/dL (12.0-15.5); LYMPHOCYTES % (AUTO) 24.7 % (13-45); MEAN CORPUSCULAR HEMOGLOBIN 30.2 pg (27.0-33.4); MEAN CORPUSCULAR HGB CONC 34.3 g/dL (32.0-36.0); MEAN CORPUSCULAR VOLUME 88 fl (80-97); MONOCYTES % (AUTO) 7.9 % (3-13); PLATELET COUNT 225 10^3/uL (150-450); RED BLOOD COUNT 4.54 10^6/uL (3.72-5.28); RED CELL DISTRIBUTION WIDTH 13.5 % (11.5-14.0); SEGMENTED NEUTROPHILS % (AUTO) 63.8 % (42-78); TOTAL CELLS COUNTED % (AUTO) 100 %; WHITE BLOOD COUNT 7.7 10^3/uL (4.0-10.5)
[2019-09-30 10:09] LABS: ANION GAP 6 (5-19); BLOOD UREA NITROGEN 9 mg/dL (7-20); CALCIUM 8.7 mg/dL (8.4-10.2); CARBON DIOXIDE 25 mmol/L (22-30); CHLORIDE 110 mmol/L (98-107); GLUCOSE 97 mg/dL (75-110); POTASSIUM 4.5 mmol/L (3.6-5.0)
--- NOTE | 2019-09-30 11:05 | RADIOLOGY REPORT (SQ) ---
EXAM DESCRIPTION: CT SOFT TISSUE NECK WITH COMPLETED DATE/TIME: 09/30/2019 10:31 am REASON FOR STUDY: facial swelling COMPARISON: None. TECHNIQUE: Post IV contrasted scanning from skull base through lung apices with review of bone, soft tissue and lung windows. Reconstructed coronal and sagittal MPR images reviewed. All images stored on PACS. All CT scanners at this facility use dose modulation, iterative reconstruction, and/or weight based d osing when appropriate to reduce radiation dose to as low as reasonably achievable (ALARA). [facility]: Dose Right [facility]: CareDose [facility]: Dose Right [facility]: Teradose 4D [facility]: GameCrush CONTRAST TYPE AND DOSE: contrast/concentration: Isovue 350.00 mg/ml; Total Contrast Delivered: 75.0 ml; Total Saline Delivered: 55.0 ml RENAL FUNCTION: None required. The patient is less than 50 years old. RADIATION DOSE: CT Rad equipment meets quality standard of care and radiation dose reduction techniq ues were employed. CTDIvol: 13.2 mGy. DLP: 433 mGy-cm. . LIMITATIONS: None. FINDINGS: SKULL BASE: Intact. MAJOR SALIVARY GLANDS: No solid or cystic masses. No inflammatory changes. LYMPHADENOPATHY: No adenopathy. MUCOSAL MASSES OR ASYMMETRY: No mucosal masses or asymmetry. LARYNX/CORDS: No abnormal findings. VASCULAR STRUCTURES: The major vessels are patent. LUNG APICES: Clear. BONES: Intact. THYROID: Normal size. No masses. PARANASAL SINUSES: Clear. OTHER: No other significant finding. IMPRESSION: NO SIGNIFICANT FINDING IN THE SOFT TISSUES OF THE NECK. TECHNICAL DOCUMENTATION: JOB ID: [id number] Quality ID # [id number]: Final reports with documentation of one or more dose reduction techniques (e.g., Au tomated exposure control, adjustment of the mA and/or kV according to patient size, use of iterative reconstruction technique) 2010 [employer]- All Rights Reserved Reading location - IP/workstation name: [email or web address]
[2019-09-30] MEDS ORDERED: DIPHENHYDRAMINE HCL 25 MG CAPSULE PO ONE (11:30)
[2019-09-30] MEDS ORDERED: FAMOTIDINE 20 MG TABLET PO ONE (11:30)
[2019-09-30 12:06] VITALS: BP 123/72
== END 2019-09-30 12:04 | disposition home or self-care (01) ==
LOC: ER 07:43
DX: R59.0 Localized enlarged lymph nodes (principal); R22.0 Localized swelling, mass and lump, head; Z98.51 Tubal ligation status
CPT/HCPCS: 99283; 96374; 96375; 36415; 87070; 87880; 85025; 86308; 80048; 70491; J1885; J1100

== ENCOUNTER 2019-12-31 14:10 | Emergency (ER) | payer SELFPAY ==
[2019-12-31 14:43] VITALS: BP 138/85
[2019-12-31] MEDS ORDERED: PENICILLIN G BENZATHINE 1.2 MILLION UNIT/2 ML DISP.SYRIN IM ONE (14:44)
[2019-12-31] MEDS ORDERED: DEXAMETHASONE SOD PHOS INJ 10 MG/1 ML VIAL IM ONE (14:45)
--- NOTE | 2019-12-31 14:47 | ER Document Report ---
HPI - HPI Time Seen by Provider: 12/31/19 14:42 Notes: Patient is a 34-year-old female exposed to strep with her daughter who is now complaining of a sore throat over the past couple days. Denies drug allergies. She does have a mild cough from throat irritation. No other concerns or complai nts. She is able to eat and drink without difficulty otherwise but does have discomfort with swallowing. She is urinating normally. Denies any headache, fever, neck pain, URI, chest pain, palpitations, syncope, cough, shortness of breath, wheeze, dyspnea, abdominal pain, nausea/vomiting/diarrhea, urinary retention, dysuria, hematuria, or rash. - ROS Systems Reviewed and Negative: Yes All other systems reviewed and negative - REPRODUCTIVE Reproductive: DENIES: : Past Medical History - Social History Smoking Status: Never Smoker Family History: Reviewed & Not Pertinent, Hypertension, Malignancy Renal/ Medical History: Denies: Hx Peritoneal Dialysis Malignancy Medical History: Reports: Hx Cervical Cancer - dysplasia on colposcopy Psychiatric Medical History: Reports: Hx Bipolar Disorder Past Surgical History: Reports: Hx Gynecologic Surgery - cervical cancer removal, Hx Tubal Ligation - Immunizations Immunizations up to date: Yes Hx Diphtheria, Pertussis, Tetanus Vaccination: Yes - 2012 Vertical Provider Document - CONSTITUTIONAL Agree With Documented VS: Yes Notes: PHYSICAL EXAMINATION: GENERAL: Well-appearing, well-nourished and in no acute distress. A&Ox4. Answers questions appropriately. Moves comfortably w/o notable distress HEAD: Atraumatic, normocephalic. EYES: Pupils equal round and reactive to light, extraocular movements intact, sclera anicteric, conjunctiva are normal. ENT: Nares patent and with clear discharge. oropharynx mild erythema without exudates. 2+ tonsilar hypertrophy with erythema no exudate. No palatine shift. Uvula midline. No tongue protrusion. No drooling, hoarseness, or airway compromise. Moist mucous membranes. No sinus tenderness. NECK: Normal range of motion, supple without lymphadenopathy. No rigidity/meningismus. LUNGS: Breath sounds clear to auscultation bilaterally and equal. No wheezes rales or rhonchi. No retractions HEART: Regular rate and rhythm without murmurs, rubs, gallops. ABDOMEN: Soft, nontender, nondistended abdomen. No guarding, no rebound. Normal bowel sounds present. No CVA tenderness bilaterally. NEUROLOGICAL: Normal speech, normal gait. PSYCH: Normal mood, normal affect. SKIN: Warm, Dry, normal turgor, no rashes or lesions noted. - INFECTION CONTROL TRAVEL OUTSIDE OF THE [place] IN LAST 30 DAYS: No Course - Re-evaluation Re-evalutation: 12/31/19 14:45 Patient is an afebrile, well-hydrated, 34-year-old female who presents to the emergency department with a sore throat, suspect strep clinically. Vitals are acceptable without significant tachycardia, tachypnea, or hypoxia. PE is otherwise unremarkable. She is nontoxic-appearing and is tolerating p.o. without difficulty. Lungs are clear to auscultation bilaterally. No labs or imaging warranted at this time. Low suspicion for any meningitis, sepsis, peritonsillar/pharyngeal abscess, respiratory compromise, Tyrese's, or other emergent systemic condition at this time. Patient is aware this condition can change from initial presentation and she needs to monitor symptoms closely. Pt given PCN IM injection and decadron. Conservative measures otherwise for symptoms. Recheck with your PCM in 3-5 days. Return to the ED with any worsening/concerning symptoms otherwise as reviewed in discharge. Patient is in agreement. - Vital Signs Vital signs: Temp Pulse Resp BP Pulse Ox 99.4 F 97 16 138/85 H 99 12/31/19 14:43 12/31/19 14:43 12/31/19 14:43 12/31/19 14:43 12/31/19 14:43 Discharge - Discharge Clinical Impression: Sore throat Condition: Stable Disposition: HOME, SELF-CARE Instructions: Strep Throat ([facility]) Additional Instructions: Maintain adequate fluid intake Take meds as directed Salt water gargles, throat sprays, mouthwash rinse, peroxide gargles tylenol/ibuprofen as needed New toothbrush tomorrow evening over the counter cold medication as needed for symptoms F/u: with your PCM in 3-5 days for a recheck Consider consult with ENT for ongoing/worsening symptoms Return to the ED with any fever, worsening pain, chest pain, neck pain/stiffness, shortness of breath, cough, drooling, trouble swallowing/breathing, abdominal pain, n/v/d, rash, or worsening/concerning symptoms otherwise. Forms: Return to Work, Elevated Blood Pressure Referrals: BARRIE ECHOLS DO [ASSOCIATE] - Follow up as needed
== END 2019-12-31 15:10 | disposition home or self-care (01) ==
LOC: ER 14:10
DX: J02.9 Acute pharyngitis, unspecified (principal); R05 Cough; Z98.51 Tubal ligation status
CPT/HCPCS: 99282; 96372; J0561; J1100

== ENCOUNTER 2020-04-16 02:56 | Emergency (ER) | payer BC ==
[2020-04-16] MEDS ORDERED: LIDOCAINE 2% INJ-PF (20 MG/ML) 10 ML AMPUL NEB ONE (06:41)
--- NOTE | 2020-04-16 06:46 | ER Document Report ---
ED General - General Chief Complaint: Laceration Stated Complaint: CUT TO RIGHT HAND Time Seen by Provider: 04/16/20 03:27 Mode of Arrival: Ambulatory Information source: Patient TRAVEL OUTSIDE OF THE [place] IN LAST 30 DAYS: No - HPI Onset: Just prior to arrival Onset/Duration: Sudden Quality of pain: Stabbing Severity: Mild Pain Level: 1 Associated symptoms: None Exacerbated by: Other - movement or palpation of cut area on right hand Relieved by: Remaining still Similar symptoms previously: No Recently seen / treated by doctor: No Notes: 35 year old female with no significant PMH here for evaluation after she accidentally cut her right hand with a knife. The patient says the knife was clean and that she has had a tetanus shot in the last years. The patient was able to control the bleeding by holding direct pressure. The patient denies numbness or tingling of her hand. The patient denies decreased movement or strength of her right hand or fingers. - Related Data Allergies/Adverse Reactions: No Known Allergies Allergy (Verified 09/30/19 08:01) Past Medical History - General Information source: Patient - Social History Smoking Status: Current Every Day Smoker Frequency of alcohol use: None Drug Abuse: None Lives with: Family Family History: Reviewed & Not Pertinent, Hypertension, Malignancy Patient has suicidal ideation: No Patient has homicidal ideation: No Renal/ Medical History: Denies: Hx Peritoneal Dialysis Malignancy Medical History: Reports: Hx Cervical Cancer - dysplasia on colposcopy Psychiatric Medical History: Reports: Hx Bipolar Disorder Past Surgical History: Reports: Hx Gynecologic Surgery - cervical cancer removal, Hx Tubal Ligation - Immunizations Immunizations up to date: Yes Hx Diphtheria, Pertussis, Tetanus Vaccination: Yes - 2012 Review of Systems - Review of Systems Constitutional: No symptoms reported EENT: No symptoms reported Cardiovascular: No symptoms reported Respiratory: No symptoms reported Gastrointestinal: No symptoms reported Genitourinary: No symptoms reported Female Genitourinary: No symptoms reported Musculoskeletal: No symptoms reported Skin: Other - laceration to palm of hand just proximal to 5th digit Hematologic/Lymphatic: No symptoms reported Neurological/Psychological: No symptoms reported -: Yes All other systems reviewed and negative Physical Exam - Vital signs Vitals: Temp Pulse Resp BP Pulse Ox 99.0 F 85 18 130/87 H 99 04/16/20 03:11 04/16/20 03:11 04/16/20 03:11 04/16/20 03:11 04/16/20 03:11 - Notes Notes: GENERAL: Well-appearing, well-nourished and in no acute distress. HEAD: Atraumatic, normocephalic. EYES: Pupils equal round and reactive to light, extraocular movements intact, sclera anicteric, conjunctiva are normal. ENT: External ears normal, nares patent, oropharynx clear without exudates. Moist mucous membranes. NECK: Normal range of motion, supple without lymphadenopathy or JVD. LUNGS: Breath sounds clear to auscultation bilaterally and equal. No wheezes rales or rhonchi. HEART: Regular rate and rhythm without murmurs, rubs or gallops. ABDOMEN: Soft, nontender, normoactive bowel sounds. No guarding, no rebound. No masses appreciated. EXTREMITIES: Right hand with laceration to palm just proximal to 5th digit. Normal range of motion, no pitting or edema. No clubbing or cyanosis. NEUROLOGICAL: Cranial nerves II through XII grossly intact. Normal speech, normal gait. PSYCH: Normal mood, normal affect. SKIN: 1.5cm curved shaped Laceration to palm of right hand just proximal to 5th digit. Warm, Dry, normal turgor, no rashes or lesions noted. Course - Re-evaluation Re-evalutation: 04/16/20 07:26 The patient sustained a laceration to her right hand with a knife. Patient had her laceration repaired by me at the bedside and wound care instructions were given. Nursing dressed the patient's wounds. Patient's tetanus is up to date. - Vital Signs Vital signs: Temp Pulse Resp BP Pulse Ox 99.0 F 85 18 130/87 H 99 04/16/20 03:21 04/16/20 03:11 04/16/20 03:11 04/16/20 03:11 04/16/20 03:11 Procedures - Laceration/Wound Repair Right Palm (proximal to 5th digit) Wound length (cm): 1.5 Wound's Depth, Shape: Superficial, Linear Laceration pre-procedure: Betadine prep applied Anesthetic type: 1% Lidocaine Volume Anesthetic (mLs): 2 Wound explored: Clean Wound Repaired With: Sutures Suture Size/Type: 5:0, Prolene Number of Sutures: 6 Layer Closure?: No Discharge - Discharge Clinical Impression: Laceration of hand Qualifiers: Encounter type: initial encounter Foreign body presence: without foreign body Laterality: right Qualified Code(s): S61.411A - Laceration without foreign body of right hand, initial encounter Condition: Stable Disposition: HOME, SELF-CARE Instructions: Laceration Care ([facility]) Additional Instructions: Keep your wound covered in antibiotic ointment until it is completely healed. Have the sutures in your hand removed in 7-10 days. Seek medical attention for signs of a wound infection (redness, swelling, drainage, fevers).
[2020-04-16 07:48] VITALS: BP 130/85
== END 2020-04-16 07:49 | disposition home or self-care (01) ==
LOC: ER 02:56
PROC: 0HQFXZZ Repair Right Hand Skin, External Approach (ICD-10-PCS; principal; 2020-04-16)
DX: S61.411A Laceration without foreign body of right hand, initial encounter (principal); W26.0XXA Contact with knife, initial encounter
CPT/HCPCS: 99282